=== PATIENT | male | born 1995 | race Two or more races ===

== ENCOUNTER 2020-01-17 11:42 | Emergency (ER) | payer SELFPAY ==
[~2020-01-17] VITALS: Ht 165.1 cm; Wt 90.7 kg
[2020-01-17 11:56] VITALS: BP 142/89
--- NOTE | 2020-01-17 12:25 | NUR ---
CAOVID SWAB AND XRAY DONE
--- NOTE | 2020-01-17 12:59 | NUR ---
Patient discharged to home in stable condition. Written and verbal after care instructions given. Patient verbalizes understanding of instruction. Pt ambulatory with a steady gait
--- NOTE | 2020-01-19 04:40 | NUR ---
RECEIVED CALL FROM LAB REGARDING COVID RESULT. PT POSITIVE.
== END 2020-01-17 13:01 | disposition home or self-care (01) ==
LOC: ER 11:46
DX: U07.1 COVID-19 (principal)
CPT/HCPCS: 71045-TC; C9803-CS; U0003-CS

== ENCOUNTER 2020-02-20 20:31 | Emergency (ER) | payer OTHER, SELFPAY ==
[~2020-02-20] VITALS: Ht 172.7 cm; Wt 111.1 kg
[2020-02-20 20:31] VITALS: BP 109/84
--- NOTE | 2020-02-20 21:01 | NUR ---
DR. YAÑEZ AT BEDSIDE FOR EVAL.
--- NOTE | 2020-02-20 21:04 | NUR ---
UA SENT TO LAB
== END 2020-02-20 21:25 | disposition home or self-care (01) ==
LOC: ER 20:31
DX: N48.89 Other specified disorders of penis (principal)

== ENCOUNTER 2020-02-22 15:20 | Emergency (ER) | payer OTHER ==
[~2020-02-22] VITALS: Ht 172.7 cm; Wt 65.8 kg
[2020-02-22 15:34] VITALS: BP 133/80
[2020-02-22 16:49] LABS: APPEARANCE,URINE CLEAR (CLEAR); BILIRUBIN,URINE NEGATIVE (NEGATIVE); BLOOD, URINE TRACE-INTA Ery/uL (NEGATIVE); COLOR,URINE YELLOW (YELLOW); KETONES,URINE NEGATIVE (NEGATIVE); LEUKOCYTE ESTERASE ,URINE NEGATIVE (NEGATIVE); NITRITE, URINE NEGATIVE (NEGATIVE); PROTEIN,URINE NEGATIVE (NEGATIVE); UGLUCOSE NEGATIVE (NEGATIVE); UROBILINOGEN,URINE 0.2 EU/dL (0.2)
--- NOTE | 2020-02-22 16:50 | NUR ---
URINE SPECIMEN COLLECTED AND SENT TO LAB.
[2020-02-22 16:59] LABS: BACTERIA,URINE None seen /HPF (None Seen); SQUAMOUS EPITHELIAL CELL,UR 0-2 /HPF (None Seen); WBC,URINE 0-2 /HPF (0-3)
--- NOTE | 2020-02-22 17:34 | NUR ---
Patient discharged to home in stable condition. Written and verbal after care instructions given. Patient verbalizes understanding of instruction.
== END 2020-02-22 17:36 | disposition home or self-care (01) ==
LOC: ER 15:25
DX: N48.22 Cellulitis of corpus cavernosum and penis (principal)
CPT/HCPCS: 81000-TC; 87086-TC

== ENCOUNTER 2020-03-17 16:25 | Emergency (ER) | payer OTHER ==
[~2020-03-17] VITALS: Ht 172.7 cm; Wt 108.9 kg
--- NOTE | 2020-03-17 16:45 | NUR ---
at bedside for eval.
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
--- NOTE | 2020-03-17 17:24 | NUR ---
Patient discharged to home in stable condition. Written and verbal after care instructions given. Patient verbalizes understanding of instruction. Pt ambulatory with a steady gait
[2020-03-17 17:28] VITALS: BP 125/78
== END 2020-03-17 17:28 | disposition home or self-care (01) ==
LOC: ER 16:25
DX: N47.2 Paraphimosis (principal); N48.1 Balanitis
CPT/HCPCS: 82962-TC

== ENCOUNTER 2020-04-14 20:15 | Emergency (ER) | payer OTHER ==
[~2020-04-14] VITALS: Ht 172.7 cm; Wt 108.9 kg
[2020-04-14 20:15] VITALS: BP 157/85
== END 2020-04-14 21:08 | disposition home or self-care (01) ==
LOC: ER 20:15
DX: N48.22 Cellulitis of corpus cavernosum and penis (principal)
CPT/HCPCS: 82962-TC

== ENCOUNTER 2020-08-02 17:43 | Emergency (ER) | payer OTHER ==
[~2020-08-02] VITALS: Ht 172.7 cm; Wt 113.4 kg
[2020-08-02 18:04] VITALS: BP 171/111
[2020-08-02] MEDS ORDERED: DEXAMETHASONE SOD PHOSPHATE 4 MG/ML VIAL IM ONE (18:30)
[2020-08-02] MEDS ORDERED: DEXAMETHASONE SOD PHOSPHATE 10 MG/ML VIAL ONE (18:34)
== END 2020-08-02 18:52 | disposition home or self-care (01) ==
LOC: ER 17:47
DX: J03.90 Acute tonsillitis, unspecified (principal)
CPT/HCPCS: 96372; 99283; J1100

== ENCOUNTER 2020-08-09 19:38 | Emergency (ER) | payer OTHER ==
[~2020-08-09] VITALS: Ht 172.7 cm; Wt 113.4 kg
[2020-08-09 21:20] VITALS: BP 144/95
== END 2020-08-09 21:57 | disposition home or self-care (01) ==
LOC: ER 19:44
DX: J03.90 Acute tonsillitis, unspecified (principal)

== ENCOUNTER 2021-08-08 19:37 | Emergency (ER) | payer OTHER ==
[~2021-08-08] VITALS: Ht 172.7 cm; Wt 104.3 kg
[2021-08-08 19:45] VITALS: BP 149/92
[2021-08-08] MEDS ORDERED: DEXAMETHASONE SOD PHOSPHATE 4 MG/ML VIAL IM ONE (20:00)
[2021-08-08] MEDS ORDERED: KETOROLAC TROMETHAMINE INJ 60 MG/2 ML VIAL IM ONE ×2 (20:00→20:18)
[2021-08-08] MEDS ORDERED: DEXAMETHASONE SOD PHOSPHATE 10 MG/ML VIAL ONE (20:23)
[2021-08-08] MEDS ORDERED: ACET-2605 PO (20:35)
--- NOTE | 2021-08-12 16:11 | NUR ---
CALLED AND INFORMED OF (+) PCR TEST
--- NOTE | 2021-08-12 16:11 | NUR ---
CALLED AND INFORMED OF (+) PCR TEST
== END 2021-08-08 20:57 | disposition home or self-care (01) ==
LOC: ER 19:39
DX: U07.1 COVID-19 (principal); R51.9 Headache, unspecified; J03.91 Acute recurrent tonsillitis, unspecified
CPT/HCPCS: 87070; 87426; 87804; 87880; 96372 ×2; 99284; C9803; J1100; J1885; U0003; 86403-TC

== ENCOUNTER 2022-01-14 21:32 | Emergency (ER) | payer OTHER ==
[~2022-01-14] VITALS: Ht 172.7 cm; Wt 108.9 kg
[~2022-01-14 21:32] MED LIST: ACET-2605 PO
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
--- NOTE | 2022-01-14 22:50 | NUR ---
STOOL SPECIMEN SENT TO LAB
[2022-01-14] MEDS ORDERED: HYDROMORPHONE 1 MG/1 ML DISP.SYRIN ONE (22:56)
[2022-01-14] MEDS ORDERED: ONDANSETRON HCL/PF 4 MG/2 ML VIAL ONE (22:56)
[2022-01-14] MEDS ORDERED: IV NS 0.9% 1,000 ML BAG IV ONE (23:00)
[2022-01-14] MEDS ORDERED: ONDANSETRON HCL/PF 4 MG/2 ML VIAL IVP ONE (23:00)
[2022-01-14] MEDS ORDERED: HYDROMORPHONE INJ 2 MG/ML DISP.SYRIN IV ONE (23:00)
--- NOTE | 2022-01-14 23:00 | NUR ---
IV CANNULA INSERTED ON LEFT AC USING G18 NEEDLE. BLOOD DRAWN AND SENT TO LAB
[2022-01-14 23:09] LABS: BASOPHILS # (AUTO) 0.1 K/uL (0.0-0.2); EOSINOPHILS % (AUTO) 2.2 % (0.0-6.0); HEMATOCRIT 40 % (39-51); HEMOGLOBIN 13.6 g/dL (13.5-17.5); LYMPHOCYTES # (AUTO) 3.5 K/uL (0.8-4.8); MEAN CORPUSCULAR HGB CONC 34 g/dl (31.0-36.0); MEAN CORPUSCULAR VOLUME 82 fL (80-96); MONOCYTES # (AUTO) 0.9 K/uL (0.1-1.30); MONOCYTES % (AUTO) 7.6 % (2.0-12.0); NEUTROPHILS # (AUTO) 7.6 K/uL (1.8-8.9); NEUTROPHILS % (AUTO) 61.2 % (43.0-81.0); PLATELET COUNT (AUTO) 349 K/uL (150-450); RED BLOOD CELL COUNT(AUTO) 4.83 MIL/uL (4.5-6.0); WHITE BLOOD COUNT (AUTO) 12.5 K/uL (4.3-11.0)
--- NOTE | 2022-01-14 23:14 | NUR ---
PATIENT WHEELED TO CT DEPT
[2022-01-14 23:15] LABS: OCCULT BLOOD STOOL NEGATIVE (NEGATIVE)
[2022-01-14 23:18] LABS: BILIRUBIN,URINE NEGATIVE (NEGATIVE); COLOR,URINE YELLOW (YELLOW); LEUKOCYTE ESTERASE ,URINE NEGATIVE (NEGATIVE); NITRITE, URINE NEGATIVE (NEGATIVE); PROTEIN,URINE TRACE mg/dl (NEGATIVE); UGLUCOSE NEGATIVE (NEGATIVE); UROBILINOGEN,URINE 0.2 EU/dL (0.2)
[2022-01-14 23:25] LABS: CALCIUM, SERUM 8.8 mg/dL (8.5-10.1); POTASSIUM 3.9 mmol/L (3.5-5.1)
[2022-01-14 23:31] LABS: ALBUMIN 4.2 g/dL (3.4-5.0); BILIRUBIN,DIRECT 0.1 mg/dL (0.0-0.2); BILIRUBIN,TOTAL 0.3 mg/dL (0.2-1.0); TOTAL PROTEIN, SERUM 8.6 g/dL (6.4-8.2)
[2022-01-15] MEDS ORDERED: CYCL10TA9 PO (00:30)
[2022-01-15] MEDS ORDERED: HYDR-4209 PO (00:30)
--- NOTE | 2022-01-15 00:40 | NUR ---
IV CANNULA REMOVED
--- NOTE | 2022-01-15 00:40 | NUR ---
Patient discharged to home in stable condition. Written and verbal after care instructions given. Patient verbalizes understanding of instruction.
[2022-01-15 00:41] VITALS: BP 156/91
[2022-01-15 06:45] LABS: BACTERIA,URINE 2+ /HPF (None Seen); SQUAMOUS EPITHELIAL CELL,UR Few /HPF (None Seen)
== END 2022-01-15 00:51 | disposition home or self-care (01) ==
LOC: ER 21:43
DX: R10.31 Right lower quadrant pain (principal); R10.32 Left lower quadrant pain; Z79.899 Other long term (current) drug therapy
CPT/HCPCS: 36415; 74176; 80048; 80076; 81001; 82272; 83690; 85025; 85730; 87086; 96361; 96374; 96375; 99284; J1170; J2405; J7030

== ENCOUNTER 2022-03-30 23:00 | Emergency (ER) | payer OTHER ==
[~2022-03-30] VITALS: Ht 172.7 cm; Wt 113.4 kg
[~2022-03-30 23:00] MED LIST changes: +CYCL10TA9 PO; +HYDR-4209 PO
[2022-03-30 23:10] VITALS: BP 138/73
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
[2022-03-30] MEDS ORDERED: ACETAMINOPHEN 325 MG TABLET PO ONE (23:30)
[2022-03-30] MEDS ORDERED: FAMO-131 PO (23:30)
[2022-03-30] MEDS ORDERED: PRED20TA PO (23:30)
[2022-03-30] MEDS ORDERED: ACETAMINOPHEN ES 500 MG TABLET ONE (23:30)
--- NOTE | 2022-03-30 23:36 | NUR ---
Patient discharged to home in stable condition. Written and verbal after care instructions given. Patient verbalizes understanding of instruction.
== END 2022-03-30 23:36 | disposition home or self-care (01) ==
LOC: ER 23:07
DX: R21 Rash and other nonspecific skin eruption (principal); R51.9 Headache, unspecified

== ENCOUNTER 2022-12-06 20:42 | Emergency (ER) | payer OTHER ==
[~2022-12-06] VITALS: Ht 170.2 cm; Wt 42.2 kg
[~2022-12-06 20:42] MED LIST changes: +FAMO-131 PO; +PRED20TA PO
[2022-12-06] MEDS ORDERED: KETOROLAC TROMETHAMINE INJ 30 MG/ML VIAL ONE (22:17)
[2022-12-06] MEDS ORDERED: KETOROLAC TROMETHAMINE INJ 60 MG/2 ML VIAL IM ONE (22:30)
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
[2022-12-06] MEDS ORDERED: NAPR-1009 PO (23:51)
--- NOTE | 2022-12-07 00:03 | NUR ---
Patient discharged to home in stable condition. Written and verbal after care instructions given. Patient verbalizes understanding of instruction.
[2022-12-07 00:17] VITALS: BP 125/77
== END 2022-12-07 00:17 | disposition home or self-care (01) ==
LOC: ER 20:43
DX: S80.12XA Contusion of left lower leg, initial encounter (principal); Z79.899 Other long term (current) drug therapy; W22.8XXA Striking against or struck by other objects, initial encounter; Y93.89 Activity, other specified; Y92.89 Other specified places as the place of occurrence of the external cause; Y99.8 Other external cause status
CPT/HCPCS: 99284; 96372; 73552; 73590; J1885

== ENCOUNTER 2022-12-30 08:55 | Emergency (ER) | payer OTHER ==
[~2022-12-30] VITALS: Ht 170.2 cm; Wt 113.9 kg
[~2022-12-30 08:55] MED LIST changes: +NAPR-1009 PO
--- NOTE | 2022-12-30 09:19 | NUR ---
AT BEDSIDE FOR EVAL
[2022-12-30] MEDS ORDERED: KETOROLAC TROMETHAMINE INJ 30 MG/ML VIAL IM ONE (09:30)
[2022-12-30] MEDS ORDERED: DEXAMETHASONE SOD PHOSPHATE 10 MG/ML VIAL IM ONE (09:30)
[2022-12-30] MEDS ORDERED: DEXAMETHASONE SOD PHOSPHATE 10 MG/ML VIAL ONE (09:34)
[2022-12-30] MEDS ORDERED: KETOROLAC TROMETHAMINE 15 MG/ML VIAL ONE (09:35)
--- NOTE | 2022-12-30 09:35 | NUR ---
SWAB FOR COVID19 AND RAPID STREP SENT TO LAB
[2022-12-30] MEDS ORDERED: IBUP-1955 PO (09:58)
[2022-12-30 10:08] VITALS: BP 120/80
== END 2022-12-30 10:09 | disposition home or self-care (01) ==
LOC: ER 09:06
DX: J06.9 Acute upper respiratory infection, unspecified (principal); R05.9 Cough, unspecified; R09.81 Nasal congestion; J02.9 Acute pharyngitis, unspecified; Z79.1 Long term (current) use of non-steroidal anti-inflammatories (NSAID); Z79.899 Other long term (current) drug therapy; Z20.822 Contact with and (suspected) exposure to COVID-19
CPT/HCPCS: 99284; 87426; 96372 ×2; 87880; J1100; J1885; C9803; 86403-TC